=== PATIENT | male | born 1930 | race Caucasian/White ===

== ENCOUNTER 2016-12-15 17:06 | Emergency (ER) | payer MEDICARE, OTHER ==
[~2016-12-15] VITALS: Ht 175.3 cm; Wt 79.4 kg
[~2016-12-15 17:06] MED LIST: CLOP75TA28 PO
[2016-12-15 17:33] VITALS: BP 108/72
== END 2016-12-15 23:54 | disposition left against medical advice (07) ==
LOC: ER 17:21
DX: M79.604 Pain in right leg (principal); Z53.21 Procedure and treatment not carried out due to patient leaving prior to being seen by health care provider

== ENCOUNTER → 2019-03-17 | Outpatient (CLI) | payer MEDICARE, OTHER ==
[~2019-03-17] MED LIST changes: +ACE650RS PR; +ASPI-407 PO; -CLOP75TA28 PO; +FURO40TA4 PO; +HYDR-531 PO; +IRONCAP19 PO; +MAGN400C3 PO; +NAPR220C PO; +POTA10TA51 PO
== END | disposition home or self-care (01) ==
LOC: Rad HDHVI 14:55
PROVIDERS: ATTEND Internal Medicine
DX: I07.1 Rheumatic tricuspid insufficiency (principal); I25.10 Atherosclerotic heart disease of native coronary artery without angina pectoris; I48.91 Unspecified atrial fibrillation; I70.0 Atherosclerosis of aorta; I27.20 Pulmonary hypertension, unspecified
CPT/HCPCS: 93306

== ENCOUNTER → 2019-03-21 | Outpatient (CLI) | payer MEDICARE, OTHER ==
[~2019-03-21] VITALS: Ht 175.3 cm; Wt 79.4 kg
[~2019-03-21] MED LIST changes: +ADENOSINE 67 MG in GIVE UN-DILUTED 0 ML IV ONE; +ADENOSINE 90 MG/30 ML INJ IV ONE
== END | disposition home or self-care (01) ==
LOC: Rad HDHVI 08:27
PROVIDERS: ATTEND Internal Medicine
DX: I48.91 Unspecified atrial fibrillation (principal); R21 Rash and other nonspecific skin eruption; R94.31 Abnormal electrocardiogram [ECG] [EKG]
CPT/HCPCS: 78452; 93005; 96374; 96375; A9500; J0153

== ENCOUNTER → 2019-04-25 | Outpatient (CLI) | payer MEDICARE, OTHER ==
[~2019-04-25] MED LIST changes: -ADENOSINE 67 MG in GIVE UN-DILUTED 0 ML IV ONE; -ADENOSINE 90 MG/30 ML INJ IV ONE; +APIX2.5T PO; +FERR-7 PO; +IOHEXOL 350 MG/ML 100ML IJ ONE; +LIDOCAINE 2%HCL (LOCAL ANESTH.) INJ 20ML MDV ONE; +OMEP20TA PO; +PANT40T PO
[2019-04-25 09:45] VITALS: BP 142/94
--- NOTE | 2019-04-25 09:45 | NUR ---
[facility] PT ARRIVED TO THE [facility] FOR [facility]ERAPY 0 DISTRESS A/O X 3 . V/S OBTAINED EKG, CXR AND LABS
[2019-04-25 10:11] VITALS: BP 142/94
--- NOTE | 2019-04-25 10:11 | NUR ---
Pre-Op Discharge Summary: See e-MAR for any medications given for this visit. Pre-op orders received and carried out per MD of EKG, LABS and chest xrays. Patient given a copy of EKG with instructions to go to [facility] out patient for further follow up care.
[2019-04-25 12:45] LABS: Basophils # (auto) 0.1 uL; Eosinophils # (auto) 0.3 uL; Platelet Count (auto) 208 10^3/uL (140-450); White Blood Cell 4.7 10^3/uL (4.4-10.8)
[2019-04-25 12:47] LABS: Basophils % (auto) 1.4 % (0.0-2.0); Eosinophils % (auto) 6.4 % (0.0-7.0); Hematocrit 38.9 % (41.0-53.0); Hemoglobin 11.7 g/dL (13.5-17.5); Lymphocytes # (auto) 0.7 uL; Mean Corpuscular Hemoglobin 27.3 pg (28.0-32.0); Mean Corpuscular Hgb Conc. 30.2 g/dL (32.0-36.0); Mean Corpuscular Volume 90.3 fL (80.0-100.0); Monocytes # (auto) 0.7 uL; Monocytes % (auto) 14.2 % (0.0-12.0); Nucleated Red Blood Cells % 0.1 %
[2019-04-25 12:55] LABS: BUN/Creatinine Ratio 17.8; Calcium 8.7 mg/dL (8.5-10.1); Potassium 4.1 mmol/L (3.5-5.1)
[2019-04-25 13:10] LABS: INR 1.01 (0.9-1.15); Partial Thromboplastin Time 29.7 sec (23.64-32.05)
== END | disposition home or self-care (01) ==
LOC: Rad HDHVI 09:20
PROVIDERS: ATTEND Internal Medicine
DX: Z01.812 Encounter for preprocedural laboratory examination (principal); D64.9 Anemia, unspecified; R79.1 Abnormal coagulation profile; I10 Essential (primary) hypertension; I70.0 Atherosclerosis of aorta; I20.9 Angina pectoris, unspecified; J84.10 Pulmonary fibrosis, unspecified; M77.8 Other enthesopathies, not elsewhere classified
CPT/HCPCS: 36415; 71046; 80048; 85025; 85610; 85730; 93005; G0463

== ENCOUNTER → 2019-05-13 | Outpatient (CLI) | payer MEDICARE, OTHER ==
[~2019-05-13] MED LIST changes: -ACE650RS PR; -ASPI-407 PO; -HYDR-531 PO; -IOHEXOL 350 MG/ML 100ML IJ ONE; -IRONCAP19 PO; -LIDOCAINE 2%HCL (LOCAL ANESTH.) INJ 20ML MDV ONE; -MAGN400C3 PO; -NAPR220C PO; -POTA10TA51 PO
[2019-05-13 16:22] LABS: Basophils # (auto) 0.1 uL; Mean Corpuscular Volume 93.1 fL (80.0-100.0); Monocytes # (auto) 0.5 uL; Neutrophils # (auto) 3.3 uL; Nucleated Red Blood Cells % 0.1 %
[2019-05-13 16:24] LABS: Basophils % (auto) 1.7 % (0.0-2.0); Eosinophils # (auto) 0.3 uL; Hematocrit 31.3 % (41.0-53.0); Hemoglobin 9.5 g/dL (13.5-17.5); Lymphocytes # (auto) 0.6 uL; Lymphocytes % (auto) 11.8 % (10.0-50.0); Mean Corpuscular Hemoglobin 28.3 pg (28.0-32.0); Mean Corpuscular Hgb Conc. 30.4 g/dL (32.0-36.0); Monocytes % (auto) 11.2 % (0.0-12.0); Neutrophils % (auto) 69.3 % (37.0-80.0); Platelet Count (auto) 239 10^3/uL (140-450); Red Blood Cells 3.36 10^6/uL (4.5-5.90); White Blood Cell 4.7 10^3/uL (4.4-10.8)
[2019-05-13 16:37] LABS: Red Cell Distribution Width 21.8 % (11.8-14.3)
== END | disposition home or self-care (01) ==
LOC: LAB 13:32
PROVIDERS: ATTEND Internal Medicine
DX: D64.9 Anemia, unspecified (principal)
CPT/HCPCS: 36415; 85025

== ENCOUNTER → 2019-07-06 | Outpatient (CLI) | payer MEDICARE, OTHER ==
[2019-07-06 12:13] LABS: Basophils # (auto) 0.1 uL; Basophils % (auto) 1.5 % (0.0-2.0); Eosinophils # (auto) 0.2 uL; Eosinophils % (auto) 4.4 % (0.0-7.0); Hematocrit 33.6 % (41.0-53.0); Hemoglobin 10.6 g/dL (13.5-17.5); Lymphocytes # (auto) 0.5 uL; Lymphocytes % (auto) 11.3 % (10.0-50.0); Mean Corpuscular Hemoglobin 30.7 pg (28.0-32.0); Mean Corpuscular Hgb Conc. 31.5 g/dL (32.0-36.0); Mean Corpuscular Volume 97.6 fL (80.0-100.0); Monocytes # (auto) 0.5 uL; Monocytes % (auto) 10.5 % (0.0-12.0); Neutrophils # (auto) 3.4 uL; Neutrophils % (auto) 72.3 % (37.0-80.0); Nucleated Red Blood Cells % 0.1 %; Platelet Count (auto) 190 10^3/uL (140-450); Red Blood Cells 3.44 10^6/uL (4.5-5.90); Red Cell Distribution Width 17.9 % (11.8-14.3); White Blood Cell 4.8 10^3/uL (4.4-10.8)
[2019-07-06 12:22] LABS: % Iron Saturation 7.9 % (20-55)
== END | disposition home or self-care (01) ==
LOC: LAB 10:25
PROVIDERS: ATTEND Internal Medicine
DX: K92.2 Gastrointestinal hemorrhage, unspecified (principal); D50.9 Iron deficiency anemia, unspecified; Z87.19 Personal history of other diseases of the digestive system
CPT/HCPCS: 36415; 82728; 83540; 83550; 85025; 85045